=== PATIENT | female | born 1985 | race Two or more races ===

== ENCOUNTER 2024-03-16 10:40 | Inpatient (IN) | payer OTHER ==
[~2024-03-16] VITALS: Ht 30.5 cm; Wt 54.4 kg
[2024-03-16 10:15] VITALS: BP 130/73
[~2024-03-16 10:40] MED LIST: AMITIZA8 MCG; ATACAND16 MG PO; DEXILANT60 MG PO; FERRO-TIME325 MG PO; PROGESTERONE; [UNRECOGNIZED DRUG - OTHER]
[2024-03-16 15:08] LABS: HEMATOCRIT 38.7 % (36.0-45.00); HEMOGLOBIN 12.8 g/dL (12.0-15.00); MEAN CELL VOLUME 84.5 fL (80.00-100.00); MEAN CORPUSCULAR HGB CONC 33.1 g/dl (32.0-36.0); PLATELET COUNT 305 K/uL (150-450); RED BLOOD COUNT 4.58 M/uL (4.00-6.00)
[2024-03-16 15:16] LABS: RED CELL DISTRIBUTION WIDTH 25.4 % (11.5-14.5)
[2024-03-24] MEDS ORDERED: DESMOPRESSIN ACETATE 4 MCG/ML AMPUL IV ONE (13:00)
[2024-03-25] MEDS ORDERED: DESMOPRESSIN ACETATE 4 MCG/ML AMPUL IV SCH (07:00)
[2024-03-25 07:24] LABS: RH NEGATIVE
[2024-03-25] MEDS ORDERED: 0.9 % SODIUM CHLORIDE 1,000 ML IV SCH (15:45)
[2024-03-25] MEDS ORDERED: MORPHINE SULFATE 4 MG/ML CARTRIDGE IV PRN (15:45)
[2024-03-25] MEDS ORDERED: ONDANSETRON HCL 2 MG/ML VIAL IV PRN (15:45)
[2024-03-25] MEDS ORDERED: OxyCODONE HCL 5 MG TABLET (ROXICODONE) PO PRN (15:45)
[2024-03-25] MEDS ORDERED: ENALAPRILAT DIHYDRATE 1.25 MG/ML VIAL IV PRN (16:45)
[2024-03-25] MEDS ORDERED: HYOSCYAMINE SULFATE 0.125 MG TAB.SUBL SL SCH (17:00)
[2024-03-25] MEDS ORDERED: SIMETHICONE 125 MG CAPSULE PO SCH (17:00)
[2024-03-25] MEDS ORDERED: POLYETHYLENE GLYCOL 3350 17 GM BLIST.PACK PO SCH (17:00)
[2024-03-25] MEDS ORDERED: METOCLOPRAMIDE HCL 5 MG/ML VIAL IV SCH (17:00)
[2024-03-25] MEDS ORDERED: GABAPENTIN 300 MG CAPSULE PO SCH (17:00)
[2024-03-25] MEDS ORDERED: MORPHINE SULFATE 4 MG/ML VIAL IV ONE (18:10)
[2024-03-25] MEDS ORDERED: DESMOPRESSIN ACETATE 4 MCG/ML AMPUL IV ONE ×2 (18:30)
[2024-03-25] MEDS ORDERED: THROMBIN,HU/FIBRINOGEN/CALCIUM 10 ML SYRINGE TOP ONE (18:30)
[2024-03-25] MEDS ORDERED: METRONIDAZOLE/SODIUM CHLORIDE 500 MG/100 ML PIGGYBACK IV ONE (18:30)
[2024-03-25] MEDS ORDERED: CEFTRIAXONE SODIUM 2,000 MG VIAL IV ONE (18:30)
[2024-03-25 19:10] LABS: HEMATOCRIT 40.7 % (36.0-45.00); HEMOGLOBIN 13.3 g/dL (12.0-15.00); MEAN CELL VOLUME 86.1 fL (80.00-100.00); MEAN CORPUSCULAR HEMOGLOBIN 28.2 pg (27.00-32.0); MEAN CORPUSCULAR HGB CONC 32.8 g/dl (32.0-36.0); PLATELET COUNT 316 K/uL (150-450); RED BLOOD COUNT 4.73 M/uL (4.00-6.00)
[2024-03-25 19:19] LABS: RED CELL DISTRIBUTION WIDTH 25.2 % (11.5-14.5)
[2024-03-25 19:26] VITALS: BP 130/73
[2024-03-25] MEDS ORDERED: ACETAMINOPHEN 500 MG GEL..CAP PO SCH (20:00)
[2024-03-25] MEDS ORDERED: CELECOXIB 200 MG CAPSULE PO SCH (21:00)
[2024-03-25] MEDS ORDERED: FAMOTIDINE/PF 20 MG/2 ML VIAL IV PUSH SCH (21:00)
[2024-03-26 00:27] VITALS: BP 112/67; O2SAT 99
[2024-03-26 06:34] LABS: HEMATOCRIT 39.1 % (36.0-45.00); HEMOGLOBIN 13.1 g/dL (12.0-15.00); MEAN CELL VOLUME 84.5 fL (80.00-100.00); MEAN CORPUSCULAR HEMOGLOBIN 28.4 pg (27.00-32.0); MEAN CORPUSCULAR HGB CONC 33.7 g/dl (32.0-36.0); PLATELET COUNT 312 K/uL (150-450); RED BLOOD COUNT 4.62 M/uL (4.00-6.00)
[2024-03-26 06:46] LABS: RED CELL DISTRIBUTION WIDTH 25.2 % (11.5-14.5)
[2024-03-26 06:56] LABS: ALBUMIN 3.2 gm/dL (3.4-5.0); CALCIUM 8.3 mg/dL (8.5-10.1); CREATININE SERUM 0.64 mg/dL (0.55-1.02); GFR 103.31; MAGNESIUM 1.9 mg/dL (1.8-2.4); PHOSPHOROUS 2.8 mg/dL (2.5-4.9); POTASSIUM 3.95 mEq/L (3.5-5.1)
[2024-03-26 08:00] VITALS: BP 139/72
[2024-03-26] MEDS ORDERED: LACTOBACILLUS ACIDOPHILUS 1 CAP CAP PO SCH (09:00)
[2024-03-26] MEDS ORDERED: MONTELUKAST SODIUM 10 MG TABLET PO SCH (09:00)
[2024-03-26 12:32] LABS: HEMATOCRIT 36.9 % (36.0-45.00); HEMOGLOBIN 12.6 g/dL (12.0-15.00); MEAN CELL VOLUME 85.2 fL (80.00-100.00); MEAN CORPUSCULAR HEMOGLOBIN 29.2 pg (27.00-32.0); MEAN CORPUSCULAR HGB CONC 34.2 g/dl (32.0-36.0); PLATELET COUNT 290 K/uL (150-450); RED BLOOD COUNT 4.33 M/uL (4.00-6.00)
[2024-03-26 12:33] LABS: RED CELL DISTRIBUTION WIDTH 25.2 % (11.5-14.5)
[2024-03-26 12:51] LABS: INR 1.01; PARTIAL THROMBOPLASTIN TIME 26.7 SECONDS (22.0-34.0)
[2024-03-26 16:00] VITALS: BP 117/65
[2024-03-26] MEDS ORDERED: DESMOPRESSIN ACETATE 4 MCG/ML AMPUL IV SCH (17:00)
[2024-03-26] MEDS ORDERED: ENOXAPARIN SODIUM 40 MG/0.4 ML SYRINGE SUBCUTANEO SCH (17:00)
[2024-03-26] MEDS ORDERED: PHENAZOPYRIDINE HCL 100 MG TABLET PO SCH (18:30)
[2024-03-27 01:00] VITALS: BP 110/62; O2SAT 96
[2024-03-27 08:50] VITALS: BP 119/82
[2024-03-27] MEDS ORDERED: ENOXAPARIN SODIUM 40 MG/0.4 ML SYRINGE SUBCUTANEO SCH (09:00)
== END 2024-03-27 10:41 | disposition home or self-care (01) | DRG 742 ==
LOC: O/R 03-25 06:13 → OB/GYN 03-25 06:13
PROVIDERS: Surgery; Urology; ADMIT Obstetrics & Gynecology Gynecology; ATTEND Obstetrics & Gynecology Gynecology
PROC: 0DTJ4ZZ Resection of Appendix, Percutaneous Endoscopic Approach (ICD-10-PCS; 2024-03-25)
PROC: 0T788DZ Dilation of Bilateral Ureters with Intraluminal Device, Via Natural or Artificial Opening Endoscopic (ICD-10-PCS; 2024-03-25)
PROC: 0UT74ZZ Resection of Bilateral Fallopian Tubes, Percutaneous Endoscopic Approach (ICD-10-PCS; principal; 2024-03-25 11:45)
PROC: 0UT94ZZ Resection of Uterus, Percutaneous Endoscopic Approach (ICD-10-PCS; 2024-03-25 11:45)
PROC: 0DNW4ZZ Release Peritoneum, Percutaneous Endoscopic Approach (ICD-10-PCS; 2024-03-25 11:45)
DX: D25.2 Subserosal leiomyoma of uterus (principal); D68.00 Von Willebrand disease, unspecified; N83.202 Unspecified ovarian cyst, left side; N94.5 Secondary dysmenorrhea; R19.00 Intra-abdominal and pelvic swelling, mass and lump, unspecified site; D50.0 Iron deficiency anemia secondary to blood loss (chronic); I11.9 Hypertensive heart disease without heart failure; Z20.822 Contact with and (suspected) exposure to COVID-19; N80.549 Endometriosis of the appendix, unspecified depth

== ENCOUNTER 2024-04-15 18:42 | Inpatient (IN) | payer OTHER ==
[~2024-04-15] VITALS: Ht 154.9 cm; Wt 114.8 kg
--- NOTE | 2024-04-15 18:49 | NUR ---
SE RECIBE PTE ALERTA Y ORIENTADA LA CUAL REFIERE VENIR POR SANGRADO VAGINAL. SE MIDEN S/V A PTE Y SE UBICA.
[2024-04-15] MEDS ORDERED: DESMOPRESSIN ACETATE 4 MCG/ML AMPUL IV ONE ×2 (19:00)
[2024-04-15] MEDS ORDERED: 0.9 % SODIUM CHLORIDE 1,000 ML IV SCH (19:00)
[2024-04-15] MEDS ORDERED: ACETAMINOPHEN 500 MG GEL..CAP PO PRN (19:15)
[2024-04-15 19:48] LABS: HEMATOCRIT 39.7 % (36.0-45.00); HEMOGLOBIN 13.7 g/dL (12.0-15.00); MEAN CELL VOLUME 86.5 fL (80.00-100.00); MEAN CORPUSCULAR HEMOGLOBIN 29.8 pg (27.00-32.0); MEAN CORPUSCULAR HGB CONC 34.5 g/dl (32.0-36.0); PLATELET COUNT 386 K/uL (150-450); RED BLOOD COUNT 4.59 M/uL (4.00-6.00); RED CELL DISTRIBUTION WIDTH 19.3 % (11.5-14.5)
[2024-04-15 19:48] LABS: URINE BILIRRUBIN Negative (NEGATIVE); URINE BLOOD Large; URINE COLOR Orange; URINE GLUCOSE Negative (NEGATIVE); URINE LEUKOCYTE Small; URINE NITRATE Negative; URINE PROTEIN Trace (NEGATIVE); URINE UROBILINOGEN 0.2 E.U./dl
[2024-04-15 19:49] LABS: URINE BACTERIA 118.7 uL (0.0-1933); URINE EPITHELIAL CELLS 15.8 uL (0.0-38.8); URINE RBC 5987.2 uL (0.0-20.8); URINE WBC 16.2 uL (0.0-23.2)
[2024-04-15 19:56] LABS: URINE CAST 0.14 uL (0.0-1.40); URINE KETONE 40 (NEGATIVE)
[2024-04-15 19:57] LABS: URINE APPEARANCE SL CLOUDY
[2024-04-15 20:07] LABS: INR 1.02; PARTIAL THROMBOPLASTIN TIME 28.4 SECONDS (22.0-34.0); PROTHROMBIN TIME 11.1 SECONDS (9.0-11.5)
[2024-04-15 20:11] LABS: ALBUMIN 3.9 gm/dL (3.4-5.0); BILIRUBIN TOTAL 0.28 mg/dL (0.3-1.2); CALCIUM 9.3 mg/dL (8.5-10.1); CREATININE SERUM 0.66 mg/dL (0.55-1.02); GFR 99.7; GLOBULINA 3.5 G/DL (2.4-3.5); POTASSIUM 3.9 mEq/L (3.5-5.1); TOTAL PROTEIN 7.4 gm/dL (6.4-8.2)
[2024-04-15] MEDS ORDERED: CEFAZOLIN SODIUM 1,000 MG VIAL ONE (22:44)
[2024-04-15] MEDS ORDERED: THROMBIN,HU/FIBRINOGEN/CALCIUM 10 ML SYRINGE TOP ONE (22:44)
[2024-04-15] MEDS ORDERED: POVIDONE-IODINE 118 ML BOTT TOP ONE (22:44)
[2024-04-15] MEDS ORDERED: SUGAMMADEX SODIUM 200 MG/2 ML VIAL IV ONE (23:30)
[2024-04-16] MEDS ORDERED: ACETAMINOPHEN 325 MG TABLET PO SCH
[2024-04-16] MEDS ORDERED: RINGERS SOLUTION,LACTATED 1,000 ML IV SCH (01:00)
[2024-04-16] MEDS ORDERED: GABAPENTIN 100 MG CAPSULE PO SCH (01:00)
[2024-04-16] MEDS ORDERED: CEFAZOLIN SODIUM 1,000 MG VIAL IV SCH (01:00)
[2024-04-16 02:50] VITALS: BP 116/76; O2SAT 96
[2024-04-16 08:10] VITALS: BP 129/71; O2SAT 98
[2024-04-16] MEDS ORDERED: FAMOTIDINE/PF 20 MG in 0.9 % SODIUM CHLORIDE 8 ML IV PUSH SCH (09:00)
[2024-04-16 14:00] VITALS: BP 149/74; O2SAT 96
[2024-04-16 16:23] VITALS: BP 118/72; O2SAT 99
[2024-04-17 00:57] VITALS: BP 106/68; O2SAT 99
== END 2024-04-17 11:35 | disposition home or self-care (01) | DRG 748 ==
LOC: ER 18:45 → SURH 19:30 → SEC-K 19:30 → SURH 23:45
PROVIDERS: General Practice; Preventive Medicine Public Health & General Preventive Medicine; ADMIT Obstetrics & Gynecology Gynecology; ATTEND Obstetrics & Gynecology Gynecology
PROC: 0USGXZZ Reposition Vagina, External Approach (ICD-10-PCS; principal; 2024-04-15 23:00)
DX: N99.3 Prolapse of vaginal vault after hysterectomy (principal); Z20.822 Contact with and (suspected) exposure to COVID-19